=== PATIENT | male | born 1995 | race Caucasian/White ===

== ENCOUNTER 2016-11-22 09:48 | Emergency (ER) | payer SELFPAY ==
[2016-11-22] MEDS ORDERED: cefTRIAXone\\ROCEPHIN 1 GM VIAL ONE (09:58)
[2016-11-22] MEDS ORDERED: Ibuprofen 800 MG TAB ONE (09:58)
[2016-11-22] MEDS ORDERED: HYDROcodone/Acetaminophen 10/325 mg Tablet ONE (09:58)
[2016-11-22] MEDS ORDERED: Lidocaine 1% 20 ML MDV ONE (09:59)
== END 2016-11-22 10:28 | disposition home or self-care (01) ==
LOC: BURERS 09:48
DX: K04.7 Periapical abscess without sinus (principal); F17.210 Nicotine dependence, cigarettes, uncomplicated
CPT/HCPCS: 96372; J0696; J2001

== ENCOUNTER 2016-12-15 14:11 | Emergency (ER) | payer SELFPAY ==
[2016-12-15] MEDS ORDERED: AMOXicillin 250 MG CAP ONE (14:28)
[2016-12-15] MEDS ORDERED: HYDROcodone/Acetaminophen 5/325 mg Tablet ONE (14:28)
== END 2016-12-15 14:44 | disposition home or self-care (01) ==
LOC: BURERS 14:11
DX: K02.9 Dental caries, unspecified (principal); F17.210 Nicotine dependence, cigarettes, uncomplicated
CPT/HCPCS: 99282

== ENCOUNTER 2017-01-06 17:31 | Emergency (ER) | payer SELFPAY ==
[2017-01-06] MEDS ORDERED: HYDROcodone/Acetaminophen 10/325 mg Tablet ONE (17:49)
[2017-01-06] MEDS ORDERED: Ketorolac Tromethamine 60 MG/2 ML VIAL ONE (17:50)
[2017-01-06] MEDS ORDERED: Amoxicillin/Potassium Clav 875 MG TAB ONE (17:50)
== END 2017-01-06 18:10 | disposition home or self-care (01) ==
LOC: BURERS 17:31
DX: K04.7 Periapical abscess without sinus (principal); F17.210 Nicotine dependence, cigarettes, uncomplicated
CPT/HCPCS: 96372; J1885

== ENCOUNTER 2017-06-22 10:15 | Emergency (ER) | payer SELFPAY ==
[2017-06-22] MEDS ORDERED: Ibuprofen 200 MG TAB ONE (11:09)
--- NOTE | 2017-06-22 18:52 | RAD ---
LEFT WRIST THREE VIEWS 06/22/17 There is a fracture of the distal ulna dorsomedially. A small fragment is present with minimal displa cement. The remainder of the wrist, including carpal bones, appears intact. There is considerable sof t tissue swelling over the dorsum of the wrist. No opaque foreign bodies were seen in the soft tissue s. IMPRESSION: Longitudinal fracture of the distal left ulna dorsomedially. POS: HOME
== END 2017-06-22 11:15 | disposition home or self-care (01) ==
LOC: BURERS 10:15
DX: S52.202A Unspecified fracture of shaft of left ulna, initial encounter for closed fracture (principal); F17.210 Nicotine dependence, cigarettes, uncomplicated; S60.812A Abrasion of left wrist, initial encounter; S60.512A Abrasion of left hand, initial encounter; W54.0XXA Bitten by dog, initial encounter

== ENCOUNTER 2017-07-01 23:06 | Emergency (ER) | payer SELFPAY ==
[2017-07-01] MEDS ORDERED: HYDROcodone/Acetaminophen 10/325 mg Tablet ONE (23:22)
[2017-07-01] MEDS ORDERED: AMOXicillin 250 MG CAP ONE (23:23)
== END 2017-07-01 23:31 | disposition home or self-care (01) ==
LOC: BURERS 23:06
DX: K03.81 Cracked tooth (principal); K02.9 Dental caries, unspecified; F17.210 Nicotine dependence, cigarettes, uncomplicated; Z79.899 Other long term (current) drug therapy
CPT/HCPCS: 99282

== ENCOUNTER 2017-09-23 13:03 | Emergency (ER) | payer SELFPAY ==
[2017-09-23] MEDS ORDERED: AMOXicillin 250 MG CAP ONE (13:55)
[2017-09-23] MEDS ORDERED: Ketorolac Tromethamine 60 MG/2 ML VIAL ONE (13:55)
== END 2017-09-23 14:02 | disposition home or self-care (01) ==
LOC: BURERS 13:03
DX: K02.9 Dental caries, unspecified (principal); F17.210 Nicotine dependence, cigarettes, uncomplicated
CPT/HCPCS: 96372; J1885

== ENCOUNTER 2018-10-30 19:04 | Emergency (ER) | payer SELFPAY | END 2018-10-30 19:40 | disposition home or self-care (01) | LOC: BURERS 19:04 | DX: K04.7 Periapical abscess without sinus (principal) | CPT/HCPCS: 41800 ==

== ENCOUNTER 2020-01-09 22:21 | Emergency (ER) | payer SELFPAY ==
[2020-01-09] MEDS ORDERED: Bupivacaine 0.5% 10 ML VIAL ONE (22:26)
[2020-01-09] MEDS ORDERED: Amoxicillin/Potassium Clav 875 MG TAB ONE (22:48)
[2020-01-09] MEDS ORDERED: Ibuprofen 800 MG TAB ONE (22:48)
[2020-01-09] MEDS ORDERED: Morphine 4 MG/ML VIAL ONE (22:48)
== END 2020-01-09 22:59 | disposition home or self-care (01) ==
LOC: BURERS 22:21
DX: K04.7 Periapical abscess without sinus (principal); L03.211 Cellulitis of face; F17.210 Nicotine dependence, cigarettes, uncomplicated; Z79.899 Other long term (current) drug therapy
CPT/HCPCS: 96372; 99283; J2270; J3490

== ENCOUNTER 2021-08-18 23:40 | Emergency (ER) | payer SELFPAY ==
[2021-08-19] MEDS ORDERED: Bupivacaine 0.5% 10 ML VIAL ONE (00:09)
[2021-08-19] MEDS ORDERED: HYDROcodone/Acetaminophen 5/325 mg Tablet ONE (00:24)
[2021-08-19] MEDS ORDERED: Penicillin V Potassium 250 MG TAB ONE ×2 (00:25)
== END 2021-08-19 00:47 | disposition home or self-care (01) ==
LOC: BURERS 23:40
DX: K04.7 Periapical abscess without sinus (principal); K02.9 Dental caries, unspecified; F17.210 Nicotine dependence, cigarettes, uncomplicated
CPT/HCPCS: 64400; J3490

== ENCOUNTER 2022-08-27 21:01 | Emergency (ER) | payer OTHER, SELFPAY ==
[2022-08-27] MEDS ORDERED: Tetracaine 0.5% PF 4 ML BOT ONE (21:12)
[2022-08-27] MEDS ORDERED: Fluorescein Opthalmic Strip ONE (21:12)
[2022-08-27] MEDS ORDERED: HYDROcodone/Acetaminophen 5/325 mg Tablet ONE (21:24)
== END 2022-08-27 22:51 | disposition home or self-care (01) ==
LOC: BURERS 21:01
DX: S00.12XA Contusion of left eyelid and periocular area, initial encounter (principal); F17.200 Nicotine dependence, unspecified, uncomplicated; W26.0XXA Contact with knife, initial encounter
CPT/HCPCS: 70480

== ENCOUNTER 2022-12-17 21:59 | Emergency (ER) | payer SELFPAY ==
[2022-12-17] MEDS ORDERED: Ondansetron PF 4 MG/2 ML Vial ONE (22:19)
[2022-12-17] MEDS ORDERED: fentaNYL 50 mcg/mL 1 mL Vial ONE ×2 (22:19→22:57)
[2022-12-17] MEDS ORDERED: Ketorolac Tromethamine 30 MG/ML VIAL ONE (22:19)
[2022-12-17 22:52] LABS: #Basophils 0.1 thou/uL (0.0-0.2); #Eosinphils 0.7 thou/uL (0.0-0.7); #Lymphocytes 1.8 thou/uL (1.20-3.40); #Monocytes 0.8 thou/uL (0.11-0.59); %Basophils 0.9 % (0.0-1.0); %Eosinophils 6.4 % (0.0-10.0); %Lymphocytes 17.6 % (21.0-51.0); %Monocytes 7.9 % (0.0-10.0); %Neutrophils 67.2 % (42.0-75.0); Hemoglobin 13.7 g/dL (14.0-18.0); Mean Corpuscular HGB CONC 33.5 g/dL (32.0-36.0); Mean Corpuscular Volume 86.5 fl (78.0-98.0); Mean Platelet Volume 8.4 fL (7.4-10.4); Platelet Count 232 10x3/uL (130-400); RBC Distribution Width 12.3 % (11.5-14.5); Red Blood Cell (RBC) Count 4.74 mill/uL (4.70-6.10); White Blood Cell (WBC) Count 10.4 10x3/uL (4.8-10.8)
[2022-12-17 23:09] LABS: ALT (SGPT) 13 U/L (8-55); AST (SGOT) 13 U/L (5-34); Albumin 3.8 g/dL (3.5-5.0); Alkaline Phosphatase 59 U/L (40-110); Anion Gap 15 mmol/L (10-20); BUN (Urea Nitrogen) 14 mg/dL (8.9-20.6); Bilirubin, Total 0.3 mg/dL (0.2-1.2); CK (CPK) 100 U/L (30-200); Calc. Creatinine Clearance 0 mL/min (70-130); Calcium 8.1 mg/dL (7.8-10.44); Carbon Dioxide 25 mmol/L (22-29); Chloride 106 mmol/L (98-107); Estimated GFR 100; Globulin 2.6 g/dL (2.4-3.5); Glucose 99 mg/dL (70-105); Lipase 21 U/L (8-78); Potassium 4.5 mmol/L (3.5-5.1); Protein, Total 6.4 g/dL (6.0-8.3); Sodium 141 mmol/L (136-145)
[2022-12-18] MEDS ORDERED: Thiamine HCl 200 MG/2 ML VIAL ONE (00:06)
== END 2022-12-17 23:54 | disposition home or self-care (01) ==
LOC: BURERS 21:59
DX: T67.2XXA Heat cramp, initial encounter (principal); D64.9 Anemia, unspecified; F17.290 Nicotine dependence, other tobacco product, uncomplicated; X30.XXXA Exposure to excessive natural heat, initial encounter
CPT/HCPCS: 36415; 80053; 82550; 83690; 85025; 96374; 96375; 96376; J1885; J2405; J3010